=== PATIENT | male | born 1995 | race Caucasian/White ===

== ENCOUNTER → 2023-06-26 | Outpatient (CLI) | payer MEDICAID ==
[2023-06-27 02:31] LABS: Basophils # (A) 0.04 X 10*3/uL (0.00-0.10); Basophils % (A) 0.7 %; Eosinophils # (A) 0.15 X 10*3/uL (0.04-0.35); Eosinophils % (A) 2.8 %; HCT 48.7 % (39.6-50.0); HGB 16.1 d/dL (13.0-17.0); Lymphocytes # (A) 1.41 X 10*3/uL (0.90-5.00); Lymphocytes % (A) 26.3 %; MCH 27.7 pg (27.0-32.0); MCHC 33.1 d/dL (32.0-37.0); MCV 83.7 FL (80.0-97.0); Monocytes # (A) 0.58 X 10*3/uL (0.20-1.00); Monocytes % (A) 10.8 %; NRBC Per 100 WBC 0 X 10*3/uL (0.00-0.01); Neutrophils # (A) 3.18 X 10*3/uL (1.80-7.70); Neutrophils % (A) 59.2 %; Platelet Count 201 X 10*3/uL (140-440); RBC 5.82 X 10*6/uL (4.40-5.60); RDW 12.2 % (11.5-14.5); WBC 5.37 X 10*3/uL (4.50-10.00)
[2023-06-27 03:38] LABS: ALT 26 U/L (10-49); AST 19 U/L (14-35); Albumin 4.6 d/dL (3.8-4.9); Albumin/Globulin Ratio 2.09 Ratio (1.60-3.17); Alkaline Phosphatase 99 U/L (41-126); Blood Urea Nitrogen 13.9 mg/dL (9.0-27.0); Calcium 9.6 mg/dL (8.7-10.3); Carbon Dioxide 26.6 mmol/L (21.6-31.8); Chloride 100 mmol/L (96-109); Chol/HDL Ratio 3.31 Ratio; Globulin 2.2 d/dL (1.6-3.3); Glucose 90 mg/dL (70-110); LDL Cholesterol,Calculated 78.4 mg/dL (0.0-131.0); Potassium 4.5 mmol/L (3.5-5.5); Sodium 140 mmol/L (135-145); Total Bilirubin 0.4 mg/dL (0.3-1.2); Total Protein 6.8 d/dL (6.2-8.2)
== END | disposition home or self-care (01) ==
LOC: LABWHC1 15:12
PROVIDERS: ATTEND Family Medicine
DX: Z00.00 Encounter for general adult medical examination without abnormal findings (principal); Z87.898 Personal history of other specified conditions
CPT/HCPCS: 36415; 80053; 80061; 82306; 85025